=== PATIENT | male | born 1985 ===

== ENCOUNTER 2020-07-05 11:25 | Emergency (ER) | payer OTHER ==
[~2020-07-05] VITALS: Ht 182.9 cm; Wt 64.9 kg
[2020-07-05] MEDS ORDERED: HIBICLENS118 ML TOP (12:15)
[2020-07-05] MEDS ORDERED: LEVAQUIN750 MG PO (12:15)
[2020-07-05] MEDS ORDERED: MUPIROCIN1 G1 TOP (12:15)
[2020-07-05] MEDS ORDERED: TYLENOL EXTRA500 MG PO (12:30)
[2020-07-05] MEDS ORDERED: MAPAP500 MG PO (12:32)
== END 2020-07-05 12:10 | disposition home or self-care (01) ==
LOC: ER 11:25
DX: S61.412A Laceration without foreign body of left hand, initial encounter (principal); W26.0XXA Contact with knife, initial encounter; Y93.89 Activity, other specified; Y92.018 Other place in single-family (private) house as the place of occurrence of the external cause; Y99.8 Other external cause status

== ENCOUNTER 2021-08-13 12:02 | Outpatient (CLI) | payer OTHER ==
[~2021-08-13 12:02] MED LIST: HIBICLENS118 ML TOP; LEVAQUIN750 MG PO; MAPAP500 MG PO; MUPIROCIN1 G1 TOP; TYLENOL EXTRA500 MG PO
== END 2021-08-13 12:16 | disposition home or self-care (01) ==
LOC: RAD 12:02
PROVIDERS: ATTEND Internal Medicine Cardiovascular Disease
DX: I10 Essential (primary) hypertension (principal); R06.02 Shortness of breath

== ENCOUNTER 2021-09-14 13:58 | Outpatient (CLI) | payer OTHER | END 2021-09-14 14:14 | disposition home or self-care (01) | LOC: SONOGRAMA 13:58 | PROVIDERS: ATTEND Internal Medicine Cardiovascular Disease | DX: N20.0 Calculus of kidney (principal); I10 Essential (primary) hypertension; R31.21 Asymptomatic microscopic hematuria ==